=== PATIENT | male | born 1965 | race Caucasian/White ===

== ENCOUNTER 2018-02-18 10:22 | Emergency (ER) | payer OTHER ==
[2018-02-18 10:43] VITALS: BP 157/88
--- NOTE | 2018-02-18 11:25 | UC ---
Dental HPI - HPI Summary HPI Summary: The patient is a 52-year-old male that presents here for evaluation of a toothache. He has had left cheek swelling for a day. He denies any fever or chills. He's been taking ibuprofen for the pain. He has no fever or chills. No Nausea vomiting or diarrhea. - History of Current Complaint Chief Complaint: UCDentalProblem Stated Complaint: DENTAL,EARS,SINUSES Time Seen by Provider: 02/18/18 11:06 Hx Obtained From: Patient Onset/Duration: Gradual Onset, Lasting Days Severity: Mild Pain Intensity: 4 Pain Scale Used: 0-10 Numeric Aggravating Factor(s): Heat, Cold, Chewing Alleviating Factor(s): Nothing Related History: Swelling Dental: 1 - tooth in question/rotted/gum red and swollen - Allergies/Home Medications Allergies/Adverse Reactions: Allergies Allergy/AdvReac Type Severity Reaction Status Date / Time No Known Allergies Allergy Verified 02/18/18 10:41 Home Medications: Home Medications Acetaminophen [Tylenol Arthritis] 2 tab PO ONCE 02/18/18 [History Confirmed ] Ibuprofen TAB* [Advil TAB*] 1,000 mg PO Q6H PRN 02/18/18 [History Confirmed ] Lisinopril TAB* [Prinivil TAB*] 2 tab PO DAILY 02/18/18 [History Confirmed 02/18] PMH/Surg Hx/FS Hx/Imm Hx Previously Healthy: Yes Cardiovascular History: Hypertension - Surgical History Surgical History: Yes Surgery Procedure, Year, and Place: tonsillectomy - Family History Known Family History: Positive: Hypertension - Social History Alcohol Use: Rare Substance Use Type: None Smoking Status (MU): Heavy Every Day Tobacco Smoker Type: Cigarettes Amount Used/How Often: 1 PPD Review of Systems Constitutional: Negative Skin: Negative Eyes: Negative ENT: Dental Pain Respiratory: Negative Cardiovascular: Negative Gastrointestinal: Negative Genitourinary: Negative Motor: Negative Neurovascular: Negative Musculoskeletal: Negative Neurological: Negative Psychological: Negative Is Patient Immunocompromised?: No All Other Systems Reviewed And Are Negative: Yes Physical Exam Triage Information Reviewed: Yes Appearance: Well-Appearing, No Pain Distress, Well-Nourished Vital Signs: Initial Vital Signs Temp 97.7 F 02/18/18 10:33 Pulse 80 02/18/18 10:33 Resp 17 02/18/18 10:33 BP 157/88 02/18/18 10:33 Pulse Ox 99 02/18/18 10:33 Eyes: Positive: Conjunctiva Clear ENT: Positive: Hearing grossly normal, Uvula midline. Negative: Nasal congestion, Nasal drainage, Trismus, Muffled voice, Hoarse voice Dental: Positive: Gross Decay/Caries @ - generally has abysmal overall dentition Neck: Positive: Supple, Nontender, Enlarged Nodes @ - left ant cervical Respiratory: Positive: Lungs clear, Normal breath sounds, No respiratory distress, No accessory muscle use Cardiovascular: Positive: RRR, No Murmur Abdominal Exam: Normal Bowel Sounds: Positive: Present Musculoskeletal: Positive: ROM Intact, No Edema Neurological: Positive: Alert Psychological Exam: Normal Skin Exam: Normal Dental Complaint Course/Dx - Differential Dx/Diagnosis Provider Diagnoses: dental abscess Discharge - Sign-Out/Discharge Documenting (check all that apply): Patient Departure All imaging exams completed and their final reports reviewed: No Studies - Discharge Plan Condition: Stable Disposition: HOME Prescriptions: Penicillin VK 500 MG TAB(NF) [Penicillin VK 500 mg Tab] 500 mg PO QID #28 tab Patient Education Materials: Dental Abscess (ED) Referrals: Thai Dalal [Primary Care Provider] - Additional Instructions: recheck for new or worsening symptoms recheck in 2 days if not impoved you need to get in to see a dentist as soon as feasible - Billing Disposition and Condition Condition: STABLE Disposition: Home
[2018-02-18] MEDS: Penicillin VK TAB* 250 MG PO ONE (11:29)
== END 2018-02-18 11:32 | disposition home or self-care (01) ==
LOC: UCCORT 10:22
DX: K04.7 Periapical abscess without sinus (principal); I10 Essential (primary) hypertension; F17.210 Nicotine dependence, cigarettes, uncomplicated
CPT/HCPCS: 99212; A9270-GY; G0463